=== PATIENT | male | born 1985 | race Caucasian/White ===

== ENCOUNTER 2020-03-26 20:30 | Emergency (ER) | payer SELFPAY ==
[2020-03-26] MEDS ORDERED: LIDOCAINE 1% INJ-PF (10 MG/ML) 30 ML SDV INJ ONE (21:08)
[2020-03-26] MEDS ORDERED: LIDOCAINE 1% INJ-PF (10 MG/ML) 30 ML SDV ONE (21:10)
[2020-03-26 21:25] VITALS: BP 132/70
--- NOTE | 2020-03-26 21:50 | ER Document Report ---
ED Hand/Wrist Injury - General Chief Complaint: Laceration Stated Complaint: HAND INJURY Time Seen by Provider: 03/26/20 21:07 Mode of Arrival: Ambulatory Information source: Patient, Friend Notes: Patient is a 34-year-old male comes emergency room with his friend complaining of having a laceration to the lateral side of the right thumb. Patient states he throws axes through it into a target when he went to retrieve it he miscalculated and dropped the ax on his hand. He is complaining of a laceration in that area. He denies any abnormalities he has full range of motion with the thumb. Patient states he is up-to-date on his tetanus shots. TRAVEL OUTSIDE OF THE [place] IN LAST 30 DAYS: No - HPI Injury to: Thumb Onset: Just prior to arrival Where: Home Timing: Constant Quality of pain: Throbbing Severity: Moderate Pain Level: 3 - Related Data Home Medications: prozac, xanax Past Medical History - General Information source: Patient - Social History Smoking Status: Current Every Day Smoker Cigarette use (# per day): Yes Chew tobacco use (# tins/day): No Smoking Education Provided: Yes Frequency of alcohol use: None Drug Abuse: None Lives with: Family Family History: Reviewed & Not Pertinent Patient has homicidal ideation: No Review of Systems - Review of Systems Constitutional: No symptoms reported EENT: No symptoms reported Cardiovascular: No symptoms reported Respiratory: No symptoms reported Gastrointestinal: No symptoms reported Genitourinary: No symptoms reported Male Genitourinary: No symptoms reported Musculoskeletal: See HPI Skin: Other - Laceration Hematologic/Lymphatic: No symptoms reported Neurological/Psychological: No symptoms reported -: Yes All other systems reviewed and negative Physical Exam - Vital signs Vitals: Temp Pulse Resp BP Pulse Ox 98.7 F 92 16 130/84 H 94 03/26/20 20:54 03/26/20 20:54 03/26/20 20:54 03/26/20 20:54 03/26/20 20:54 Interpretation: Hypertensive - Notes Notes: PHYSICAL EXAMINATION: GENERAL: Well-appearing, well-nourished and in no acute distress. HEAD: Atraumatic, normocephalic. EYES: Pupils equal round and reactive to light, extraocular movements intact, sclera anicteric, conjunctiva are normal. LUNGS: Breath sounds clear to auscultation bilaterally and equal. No wheezes rales or rhonchi. HEART: Regular rate and rhythm without murmurs Musculoskeletal: Examination patient is very concerned his right thumb lateral side base of the thenar prominence. Patient has a 4 cm linear laceration that is into the muscle but not involved with tendons. Patient has full range of motion of his thumb both passively and against resistance. 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 NEUROLOGICAL: Cranial nerves grossly intact. Normal speech, normal gait. Normal sensory, motor exams PSYCH: Normal mood, normal affect. SKIN: See musculoskeletal above for full details Course - Re-evaluation Re-evalutation: 03/26/20 21:48 Patient having full range of motion and having no history of traumatic impact did not feel is necessary to do a x-ray at this time. - Vital Signs Vital signs: Temp Pulse Resp BP Pulse Ox 98.4 F 82 18 132/70 H 99 03/26/20 21:23 03/26/20 21:23 03/26/20 21:23 03/26/20 21:23 03/26/20 21:23 Procedures - Laceration/Wound Repair Right Lateral Thumb Wound length (cm): 4 Wound's Depth, Shape: Linear Laceration pre-procedure: Sterile PPE donned, Sterile drapes applied, Shur-Clens applied Anesthetic type: 1% Lidocaine Volume Anesthetic (mLs): 8 Wound explored: Clean Irrigated w/ Saline (mLs): 1,000 Wound Debrided: Minimal Wound Repaired With: Sutures Suture Size/Type: 3:0, Prolene Number of Sutures: 8 Layer Closure?: No Post-procedure wound care: Sterile dressing applied, Splint applied Post-procedure NV exam normal: Yes Complications: No Notes: 03/26/20 21:50 Patient was placed in a modified thumb spica by the emergency room tech was checked by me emergency room physician occupational therapist assistant found to be in good position with good cap refill in nailbeds of the thumb after up application. Discharge - Discharge Clinical Impression: Hand laceration Qualifiers: Encounter type: sequela Foreign body presence: without foreign body Laterality: right Qualified Code(s): S61.411S - Laceration without foreign body of right hand, sequela Condition: Stable Disposition: HOME, SELF-CARE Instructions: Antibiotic Ointment Protection ([facility]), Laceration Care ([facility]), Prophylactic Antibiotic ([facility]), Soap Cleansing ([facility]) Additional Instructions: As we discussed keep the wound clean and dry for at least 48 hours. Use the splint over the next 4 to 5 days to keep it from all overstressing. You will need to return to ER in approximately 10 to 12 days for suture removal. Avoid being in any kind of [place] dirty water of any type until sutures are removed and have at least 24 hours a healing after that. Take all the antibiotics as prescribed. Tylenol alternate with Motrin every 4 hours for aches and pains or you can combine 800 mg of ibuprofen with the thousand milligrams of Tylenol every 8 hours. Return to ER sooner if it does not appear that the wound is healing appropriately. Prescriptions: Doxycycline Monohydrate 100 mg PO BID #20 tablet Forms: Elevated Blood Pressure, Smoking Cessation Education, Return to Work Referrals: [facility] [Provider Group] - Follow up as needed
== END 2020-03-26 22:20 | disposition home or self-care (01) ==
LOC: ER 20:30
PROC: 0HQFXZZ Repair Right Hand Skin, External Approach (ICD-10-PCS; principal; 2020-03-26)
DX: S61.411A Laceration without foreign body of right hand, initial encounter (principal); W27.0XXA Contact with workbench tool, initial encounter; F17.210 Nicotine dependence, cigarettes, uncomplicated; Z79.899 Other long term (current) drug therapy
CPT/HCPCS: 99282; 12002; J3490